=== PATIENT | female | born 1940 | race Caucasian/White ===

== ENCOUNTER 2019-11-21 08:20 | Inpatient (IN) | payer MEDICARE, OTHER ==
[~2019-11-21] VITALS: Ht 160 cm; Wt 81.2 kg
--- NOTE | 2019-11-21 08:40 | NUR ---
patient BIBPA, for medical clearance for gravely disable and danger to self. On room air, breathing evenly and unlabored. sitter at bedside for constant monitoring. Kept comfortable. ambulatory with steady gait. Will continue to monitor accordingly.
--- NOTE | 2019-11-21 08:41 | NUR ---
urine collected and sent to lab
[2019-11-21 08:56] LABS: APPEARANCE,URINE Clear (CLEAR); BILIRUBIN,URINE Negative (NEGATIVE); BLOOD, URINE Large Ery/uL (NEGATIVE); COLOR,URINE Yellow (YELLOW); KETONES,URINE Trace (NEGATIVE); LEUKOCYTE ESTERASE ,URINE Small (NEGATIVE); NITRITE, URINE Negative (NEGATIVE); PROTEIN,URINE 30 mg/dl (NEGATIVE); UGLUCOSE >=1000 mg/dL (NEGATIVE)
[2019-11-21 08:59] LABS: BASOPHILS # (AUTO) 0.1 /CMM (0.0-0.2); BASOPHILS % (AUTO) 0.7 % (0.0-2.0); EOSINOPHILS % (AUTO) 7.1 % (0.0-6.0); HEMATOCRIT 41 % (39-51); HEMOGLOBIN 13.8 g/dL (13.5-17.5); LYMPHOCYTES % (AUTO) 13.9 % (20.0-44.0); MEAN CORPUSCULAR HGB CONC 34 g/dl (31.0-36.0); MEAN CORPUSCULAR VOLUME 89 fL (80-96); MONOCYTES # (AUTO) 0.6 /CMM (0.1-1.30); MONOCYTES % (AUTO) 8.7 % (2.0-12.0); NEUTROPHILS # (AUTO) 5.2 /CMM (1.8-8.9); NEUTROPHILS % (AUTO) 69.6 % (43.0-81.0); PLATELET COUNT (AUTO) 104 /CMM (150-450); RED BLOOD CELL COUNT(AUTO) 4.54 MIL/uL (4.5-6.0); WHITE BLOOD COUNT (AUTO) 7.4 K/uL (4.3-11.0)
[2019-11-21 09:07] LABS: BACTERIA,URINE Moderate /HPF (None Seen); RBC,URINE TOO NUMEROUS TO COUN /HPF (0-2); SQUAMOUS EPITHELIAL CELL,UR Few /HPF (None Seen)
--- NOTE | 2019-11-21 09:30 | NUR ---
glucose 353
[2019-11-21 09:31] LABS: ALANINE AMINOTRANSFERASE 45 U/L (12-78); ALBUMIN 3.2 g/dL (3.4-5.0); ALCOHOL, BLOOD < 3 mg/dL (0-0); ALKALINE PHOSPHATASE 156 U/L (46-116); ASPARTATE AMINOTRANSFERASE 44 U/L (15-37); BILIRUBIN,DIRECT 0.3 mg/dL (0.0-0.2); BILIRUBIN,TOTAL 0.9 mg/dL (0.2-1.0); CALCIUM, SERUM 9.5 mg/dL (8.5-10.1); CARBON DIOXIDE 25 mmol/L (21-32); CHLORIDE 101 mmol/L (98-107); CREATININE 1.4 mg/dL (0.6-1.3); GLUCOSE 353 mg/dL (74-106); POTASSIUM 4.1 mmol/L (3.5-5.1); SODIUM SERUM 135 mmol/L (136-145); TOTAL PROTEIN, SERUM 6.7 g/dL (6.4-8.2); UREA NITROGEN, BLOOD 24 mg/dL (7-18)
[2019-11-21 09:32] LABS: ACETAMINOPHEN 0 ug/ml (10-30); SALICYLATE < 0.2 mg/dL (2.8-20.0)
--- NOTE | 2019-11-21 11:37 | NUR ---
report given to GPS RN for candy.
--- NOTE | 2019-11-21 11:55 | NUR ---
Dr. Neal made aware of the admission and gave orders and he will see pt. tomorrow.
[2019-11-21] MEDS ORDERED: MAG HYDROX/AL HYDROX/SIMETH 30 ML UDC PO PRN (12:00)
[2019-11-21] MEDS ORDERED: ZOLPIDEM TARTRATE 5 MG TABLET PO PRN (12:00)
[2019-11-21] MEDS ORDERED: OMEP40CA13 PO (12:00)
[2019-11-21] MEDS ORDERED: ACETAMINOPHEN 325 MG TABLET PO PRN (12:00)
[2019-11-21] MEDS ORDERED: FURO20TA4 PO (12:00)
[2019-11-21] MEDS ORDERED: FERR325T6 PO (12:00)
[2019-11-21] MEDS ORDERED: AMLO10TA7 PO (12:00)
[2019-11-21] MEDS ORDERED: BLOOD SUGAR DIAGNOSTIC 1 EACH STRIP IN ONE (12:00)
[2019-11-21] MEDS ORDERED: LEVO75TA7 PO (12:00)
[2019-11-21] MEDS ORDERED: ASPI-1152 PO (12:00)
[2019-11-21] MEDS ORDERED: ERGO500014 PO (12:00)
[2019-11-21] MEDS ORDERED: LOSA50TA39 PO (12:00)
[2019-11-21] MEDS ORDERED: POTA10TA48 PO (12:00)
[2019-11-21] MEDS ORDERED: OLAN10TA6 PO (12:00)
[2019-11-21] MEDS ORDERED: MAGNESIUM HYDROXIDE 30 ML UDC PO PRN (12:00)
[2019-11-21] MEDS ORDERED: LORAZEPAM 0.5 MG TABLET PO PRN (12:00)
[2019-11-21] MEDS ORDERED: INSU100V10 SUBCUT (12:04)
--- NOTE | 2019-11-21 12:49 | NUR ---
Called Dr. Sewell's exchange and spoke to Dr. Miranda and was notified about the admission and ordered Accu check with moderate sliding scale and he will see pt. in an hour. Addendum: 11/21/19 at 1602 by KIKO CURRY RN Dr. Miranda said he will do med recon when he comes.
[2019-11-21] MEDS ORDERED: DEXTROSE 50%-WATER 50 ML DISP.SYRIN IV PRN (13:00)
[2019-11-21] MEDS: INSULIN REGULAR, HUMAN 100 UNIT/ML 3 ML VIAL SQ PRN ×2 (14:19→17:30)
--- NOTE | 2019-11-21 15:51 | NUR ---
GPS/RN-NOTES ADMITTED 79 Y.O FEMALE PATIENT FROM [facility] ER, REPORT WAS GIVEN BY ANNITA MADRIGAL.UPON FACE TO FACE ASSESSMENT PATIENT ALERT ORIENTED TO NAME ONLY,CALM AND COOPERATIVE. PATIENT DENIES ANY SI/HI AT THIS TIME.PATIENT HOLD WAS REVIEWED AND WAS VERIFIED WITH THE PATIENT. PATIENT STATED" I DON'T KNOW WHY THEY BRING ME HERE IN THE HOSPITAL,I'M NOT SUICIDAL AT ALL".PATIENT WAS ORIENTED IN THE UNIT AND UNIT POLICIES. PATIENT'S RIGHT WAS REVIEWED AND GIVEN TO THE PATIENT. DR. SHAIKH( PSYCHIATRIST) MADE AWARE WITH ORDERS ALSO AND COVERING FOR DR. MABRY( CAT DRIVER) MADE AWARE AND THAT HE WILL COME SEE THE PATIENT TODAY. 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
[2019-11-21 16:00] VITALS: BP 108/76
[2019-11-21] MEDS: BLOOD SUGAR DIAGNOSTIC 1 EACH STRIP VI SCH ×2 (17:27→21:59)
--- NOTE | 2019-11-21 17:34 | NUR ---
Called Dr. Vega and he reconciled the meds and made aware of the skin rashes and that we put her in a single room and ordered wound consult.
--- NOTE | 2019-11-21 18:18 | NUR ---
GPS/ RN-NOTES UNABLE TO COLLECT URINE SPECIMEN DUE TO PATIENT WAS UNCOOPERATIVE AND REFUSED TO PROVIDE URINE.WILL ENDORSE TO INCOMING SHIFT FOR FOLLOW UP AND CONTINUITY OF CARE. Addendum: 11/21/19 at 1821 by ARMAND MADRID RN DISREGARD MY ABOVE NOTES CHARTED ON WRONG PATIENT.
[2019-11-21] MEDS: FERROUS SULFATE (325 MG) 325 MG/TAB TABLET PO SCH (18:25)
[2019-11-21 21:10] VITALS: BP 134/53
[2019-11-21] MEDS: INSULIN GLARGINE, 100 UNIT/ML CARTRIDGE SQ SCH (21:58)
[2019-11-21] MEDS: *INSULIN REGULAR(HUMULIN R)HUM 100 UNIT/ML VIAL SQ PRN (21:59)
[2019-11-22] MEDS: BLOOD SUGAR DIAGNOSTIC 1 EACH STRIP VI SCH ×4 (07:45→21:32)
[2019-11-22] MEDS: INSULIN REGULAR, HUMAN 100 UNIT/ML 3 ML VIAL SQ PRN ×2 (07:51→18:00)
[2019-11-22] MEDS: FERROUS SULFATE (325 MG) 325 MG/TAB TABLET PO SCH ×3 (07:53→16:44)
[2019-11-22] MEDS: LEVOTHYROXINE SODIUM 75 MCG TABLET PO SCH (07:54)
[2019-11-22] MEDS: PANTOPRAZOLE 40 MG TABLET.DR PO SCH (07:54)
[2019-11-22 08:00] VITALS: BP 135/74
[2019-11-22] MEDS: ASPIRIN EC 81 MG TABLET.DR PO SCH (08:12)
[2019-11-22] MEDS: AMLODIPINE BESYLATE 10 MG TABLET PO SCH (08:14)
[2019-11-22] MEDS: FUROSEMIDE 20 MG TABLET PO SCH (08:14)
[2019-11-22] MEDS: LOSARTAN POTASSIUM 50 MG TABLET PO SCH (08:14)
[2019-11-22] MEDS: ERGOCALCIFEROL (VITAMIN D 2) 50,000 UNIT CAPSULE PO SCH (08:14)
[2019-11-22] MEDS: INSULIN GLARGINE, 100 UNIT/ML CARTRIDGE SQ SCH ×2 (08:21→21:30)
[2019-11-22 09:00] LABS: ALBUMIN 2.9 g/dL (3.4-5.0); BILIRUBIN,TOTAL 0.6 mg/dL (0.2-1.0); CALCIUM, SERUM 9.1 mg/dL (8.5-10.1); TOTAL PROTEIN, SERUM 6.5 g/dL (6.4-8.2)
--- NOTE | 2019-11-22 09:00 | NUR ---
RN NOTE- PATIENT LAYING IN BED AWAKE,ALERT X1,CALM NO ACUTE DISTRESS NOTED.,ALL NEEDS ATTENDED AND ANTICIPATED. PT WITH PRURITIC ERYTHEMATOUS RASH TO ENTIRE BODY. CALLED MD REGARDING. AWAITNG ORDERS. WILL CONT. MONITORING Q15 MINS.FOR SAFETY AND BEHAVIOR
[2019-11-22 09:28] LABS: CHOLESTEROL 213 mg/dL (<200); HDL CHOLESTEROL 51 mg/dL (40-60); TRIGLYCERIDES 120 mg/dL (30-150)
[2019-11-22 09:29] LABS: LDL 138 mg/dL (0-99)
[2019-11-22] MEDS ORDERED: OLAN10TA6 PO (09:57)
[2019-11-22] MEDS ORDERED: POTASSIUM BICARBONATE/CIT AC 25 MEQ TABLET.EFF PO SCH (10:00)
--- NOTE | 2019-11-22 11:09 | NUR ---
RN NOTE- CONTACTED MD REGARDING PRURITC RASH TO BODY. NO NEW ORDERS GIVEN. WILL ATTEMPT AGAIN. THAW SHED HEATER TENDER AWARE.
[2019-11-22] MEDS: OLANZAPINE 5 MG TABLET PO SCH ×2 (11:20→16:44)
[2019-11-22] MEDS: *INSULIN REGULAR(HUMULIN R)HUM 100 UNIT/ML VIAL SQ PRN ×2 (12:00→21:36)
--- NOTE | 2019-11-22 16:09 | NUR ---
RN NOTE- PHONED DR MABRY REGARDING RASH. LEFT MESSAGE. AWAITING ORDERS
[2019-11-22 16:11] VITALS: BP 130/85
--- NOTE | 2019-11-22 16:35 | NUR ---
RN NOTE- SPOKE WITH DR DARIA LEGGETT CALL FOR DR BROOKS
--- NOTE | 2019-11-22 16:36 | NUR ---
RN NOTE- SPOKE WITH DR HUFF -MOLASSES FEED MIXER FOR DR MABRY. HE WILL BE AT UNIT AROUND 1999 TO EVALUATE PT REGARDING RASH.
[2019-11-22 20:11] VITALS: BP 131/59
[2019-11-22] MEDS ORDERED: PERMETHRIN 5% CRM 60 GM TUBE TP ONE (21:30)
--- NOTE | 2019-11-22 21:51 | NUR ---
GPS RN NOTES: DR HUFF CAME A ASSESSED PT SKIN. ORDERED ELIMITE CRM ONCE WITH NO FURTHER ORDERS. ORDERS NOTED. CONTINUE TO MONITOR PT AND SKIN PROGRESS.
[2019-11-23] MEDS: BLOOD SUGAR DIAGNOSTIC 1 EACH STRIP VI SCH ×4 (07:26→21:16)
[2019-11-23 08:00] VITALS: BP 131/60
[2019-11-23] MEDS: ASPIRIN EC 81 MG TABLET.DR PO SCH (08:03)
[2019-11-23] MEDS: PANTOPRAZOLE 40 MG TABLET.DR PO SCH (08:03)
[2019-11-23] MEDS: LEVOTHYROXINE SODIUM 75 MCG TABLET PO SCH (08:03)
[2019-11-23] MEDS: OLANZAPINE 5 MG TABLET PO SCH ×2 (08:04→16:46)
[2019-11-23] MEDS: FUROSEMIDE 20 MG TABLET PO SCH (08:04)
[2019-11-23] MEDS: LOSARTAN POTASSIUM 50 MG TABLET PO SCH (08:04)
[2019-11-23] MEDS: FERROUS SULFATE (325 MG) 325 MG/TAB TABLET PO SCH ×3 (08:04→16:45)
[2019-11-23] MEDS: POTASSIUM CITRATE 5 MEQ TABLET.SA PO SCH (08:04)
[2019-11-23] MEDS: AMLODIPINE BESYLATE 10 MG TABLET PO SCH (08:04)
[2019-11-23] MEDS: INSULIN GLARGINE, 100 UNIT/ML CARTRIDGE SQ SCH ×2 (08:05→21:30)
[2019-11-23] MEDS: INSULIN REGULAR, HUMAN 100 UNIT/ML 3 ML VIAL SQ PRN ×3 (08:16→17:24)
--- NOTE | 2019-11-23 09:19 | NUR ---
GPS RN: OPENING NOTE: PATIENT LYING IN BED AWAKE, AOX1, POLITE, CALM AND COOPERATIVE. COMPLIANT WITH MEDICATION ADMINISTRATION. DENIES PAIN AND ITCHING AFTER APPLICATION OF ELMITE CREAM. SHOWER TODAY AROUND [id number]. NO SIGNS OF ACUTE DISTRESS. DENIES SI/HI AND VAH. REPORTS FEELING RESTED AND SLEEPING WELL. ALL NEEDS ATTENDED TO. SAFETY PRECAUTIONS OBSERVED. WILL CONTINUE TO MONITOR Q15 FOR MOOD, SAFETY AND BEHAVIOR.
--- NOTE | 2019-11-23 12:05 | NUR ---
FACILITY CONTACT: SW contacted [facility] Address: [address], [place] [address] and spoke with Chani, front desk administrator who stated pt is able to return once stable for discharge.
--- NOTE | 2019-11-23 14:57 | NUR ---
INITIAL DISCHARGE PLAN: Patient will return to [facility] Address: [address], [place] [address] . MARYAM spoke with Chani, senior storage administrator who stated pt is able to return once stable for discharge. MARYAM will help form a safe and proper discharge in collaboration with .
[2019-11-23 16:35] VITALS: BP 137/70
--- NOTE | 2019-11-23 16:38 | NUR ---
GPS OVERFLOW NOTES PT MOVED TO UNIT RM 201 FROM RM 217 VIA WHEELCHAIR AT 1630 ACCOMPANIED BY NURSE BOONE CHRISTIE. PT IS A/O X3, SAME VERBALLY RESPONSIVE. V/S CHECKED; BP 132/62, P 67, R 18, T 98.5F AND 100% SP02 ON ROOM AIR. PT WITH NO IV ACCESS. SKIN NOTED WITH GENERALIZED RASHES AND REDNESS ON GROIN. SAFETY MEASURES INITIATED: BED PLACED IN LOWEST LOCKED POSITION WITH SR UP X2, CALL LIGHT WITHIN REACH. WILL CONTINUE TO MONITOR PT ACCORDINGLY.
--- NOTE | 2019-11-23 18:38 | NUR ---
GPS OVERFLOW NOTES PT IN BED AWAKE AND WATCHING TV AT THIS TIME. HOB ELEVATED. A/O X3. ABLE TO MAKE NEEDS KNOWN. PT WITH GENERALIZED RASHES, CONTACT PRECAUTIONS MAINTAINED TO R/O SCABIES. ON ROOM AIR , TOLERATING WELL WITH NO SOB NOTED. NO IV ACCESS NOTED. SAFETY MEASURES INITIATED: BED PLACED IN LOWEST LOCKED POSITION WITH SR UP X2, CALL LIGHT WITHIN REACH. ALL NEEDS AND CARE ATTENDED WELL. WILL ENDORSE TO COMMUNICATIONS SYSTEMS ENGINEER NURSE FOR KIRILL.
--- NOTE | 2019-11-23 19:15 | NUR ---
GPS PM RN OVERFLOW OPENING NOTES BEDSIDE REPORT RECIEVED FROM VITALIY MADRIGAL. PT IN BED AWAKE AND WATCHING TV. HOB ELEVATED. A/O X3. ABLE TO MAKE NEEDS KNOWN. HAS RASHES ALL OVER BODY AND CONTACT PRECAUTIONS MAINTAINED TO R/O SCABIES. ON ROOM AIR , TOLERATING WELL WITH NO APPARENT SOB RESP EVEN AND UNLABORED. PT HAS NO IV ACCESS. SAFETY MEASURES IN PLACE; BED IN LOW LOCKED POSITION WITH SR UP X2, CALL LIGHT WITHIN REACH. WILL CONT TO MONITOR.
[2019-11-23 20:26] VITALS: BP 115/68
[2019-11-23] MEDS: *INSULIN REGULAR(HUMULIN R)HUM 100 UNIT/ML VIAL SQ PRN (21:30)
[2019-11-24] MEDS: INSULIN REGULAR, HUMAN 100 UNIT/ML 3 ML VIAL SQ PRN ×3 (06:37→21:08)
[2019-11-24] MEDS: BLOOD SUGAR DIAGNOSTIC 1 EACH STRIP VI SCH ×4 (07:18→21:22)
--- NOTE | 2019-11-24 07:18 | NUR ---
RN GPS OVERFLOW PM CLOSING NOTES PT IN BED AWAKE AND WATCHING TV. HOB ELEVATED. A/O X3. ABLE TO MAKE NEEDS KNOWN. HAS RASHES ALL OVER BODY AND CONTACT PRECAUTIONS MAINTAINED TO R/O SCABIES. ON ROOM AIR , TOLERATING WELL WITH NO APPARENT SOB RESP EVEN AND UNLABORED. PT HAS NO IV ACCESS. SAFETY MEASURES IN PLACE; BED IN LOW LOCKED POSITION WITH SR UP X2, CALL LIGHT WITHIN REACH. BS CHECKED 198 GIVEN 3 UNITS REGULAR INSULIN COVERAGE.
[2019-11-24 08:00] VITALS: BP 135/66
--- NOTE | 2019-11-24 08:00 | NUR ---
RN GPS NOTES PT IN BED, AWAKE, ALERT AND ORIENTED, DENIES PAIN, NOT IN DISTRESS, CALL LIGHT WITHIN REACH, KEPT WARM AND COMFORTABLE IN BED. ISOLATION PRECAUTIONS OBSERVED, DENIES ITCHINESS AT THIS TIME.
--- NOTE | 2019-11-24 09:12 | NUR ---
WOUND CARE CONSULT: PT PRESENTS WITH RASH TO ABDOMINAL/GROIN FOLDS AND GLUTEAL CREASE/PERINEAL AREAS, PRESENT ON ADMISSION. PT ALSO HAS MULTIPLE DRY SCABS AND SCRATCH GUILLERMO MOSTLY ON EXTREMITIES, PRESENT ON ADMISSION. PER NURSING STAFF, PT WAS TREATED WITH ELIMITE. RECOMMENDATIONS MADE FOR SKIN PROTECTION AND SKIN CARE. DISCUSSED WITH NURSING STAFF. WILL SEE PRN. WILDE IN AGREEMENT WITH PLAN OF CARE. Addendum: 11/24/19 at 0915 by TOBI KENNEDY WNDNU Amended: Links added.
[2019-11-24] MEDS: PANTOPRAZOLE 40 MG TABLET.DR PO SCH (09:17)
[2019-11-24] MEDS: FERROUS SULFATE (325 MG) 325 MG/TAB TABLET PO SCH ×3 (09:17→17:47)
[2019-11-24] MEDS: LEVOTHYROXINE SODIUM 75 MCG TABLET PO SCH (09:17)
[2019-11-24] MEDS: OLANZAPINE 5 MG TABLET PO SCH ×2 (09:17→17:47)
[2019-11-24] MEDS: ASPIRIN EC 81 MG TABLET.DR PO SCH (09:17)
[2019-11-24] MEDS: LOSARTAN POTASSIUM 50 MG TABLET PO SCH (09:17)
[2019-11-24] MEDS: FUROSEMIDE 20 MG TABLET PO SCH (09:17)
[2019-11-24] MEDS: POTASSIUM CITRATE 5 MEQ TABLET.SA PO SCH (09:18)
[2019-11-24] MEDS: AMLODIPINE BESYLATE 10 MG TABLET PO SCH (09:18)
[2019-11-24] MEDS: INSULIN GLARGINE, 100 UNIT/ML CARTRIDGE SQ SCH ×2 (09:21→20:53)
[2019-11-24] MEDS ORDERED: Z GUARD REMEDY 2 OZ OINT TP PRN (09:30)
[2019-11-24] MEDS: Z GUARD REMEDY 2 OZ OINT TP SCH (11:30)
--- NOTE | 2019-11-24 12:49 | NUR ---
RN GPS NOTES PT IN BED, RESTING, NO BEHAVIOR PROBLEM, DENIES SI, COMPLIANT WITH MEDS AND INTERVENTIONS, KEPT ON ISOLATION PRECAUTIONS.
[2019-11-24 16:00] VITALS: BP 101/54
[2019-11-24] MEDS: CLOTRIMAZOLE 1% 15 GM TUBE TP SCH (17:48)
--- NOTE | 2019-11-24 18:34 | NUR ---
RN GPS NOTES PT IN BED, AWAKE, ALERT AND ORIENTED, NO COMPLAINT OF PAIN OR ANY DISCOMFORT, NO BEHAVIOR PROBLEM NOTED, TOLERATING CURRENT DIET, ALL NEEDS ATTENDED.
--- NOTE | 2019-11-24 19:00 | NUR ---
RN OPENING NOTES: RECEIVED PT ON ROOM AIR AND IS TOLERATING. WELL. NO SOB NOTED. NO S/S OF DISTRESS. PT IS A/OX2. PT APPEARS TO BE CONFUSED. PT HAS NO IV. PT HAS NO SI. BED KEPT IN LOW, LOCKED POSITION, AND SIDE RAILS X 2UP. CALL LIGHT WITHIN REACH. INSTRUCTED PT HOW TO USE CALL LIGHT. CONTACT ISOLATION PRECAUTIONS MAINTAINED. WILL CONTINUE TO MONITOR PT.
[2019-11-24 20:00] VITALS: BP 98/53
--- NOTE | 2019-11-24 21:11 | NUR ---
RN NOTES: BLOOD SUGAR WAS 149. 2 UNITS OF REGULAR INSULIN WAS ADMINISTERED. SNACK PROVIDED TO PT. ALSO, 30 UNITS OF LANTUS WAS ADMINISTERED. SNACK PROVIDED TO PT WELL.
[2019-11-25] MEDS: INSULIN REGULAR, HUMAN 100 UNIT/ML 3 ML VIAL SQ PRN ×3 (06:23→17:11)
[2019-11-25] MEDS: BLOOD SUGAR DIAGNOSTIC 1 EACH STRIP VI SCH ×4 (06:34→21:24)
--- NOTE | 2019-11-25 06:36 | NUR ---
RN NOTES: BLOOD SUGAR THIS AM WAS 145. 2 UNITS OF INSULIN WAS ADMINISTERED. PT PROVIDED APPLE SAUCE HER CHOICE OF SNACK. WILL ENDORSE TO AM NURSE FOR KIRILL.
--- NOTE | 2019-11-25 07:30 | NUR ---
RN MS NOTES PT IN BED, AWAKE, ALERT AND ORIENTED, WATCHING TV, DENIES PAIN, NOT IN DISTRESS, RESPIRATIONS NORMAL, NO BEHAVIOR PROBLEM NOTED, CALM AND COOPERATIVE WITH CARE, CALL LIGHT WITHIN REACH, ISOLATION PRECAUTIONS OBSERVED.
[2019-11-25 08:00] VITALS: BP 133/60
[2019-11-25] MEDS: FUROSEMIDE 20 MG TABLET PO SCH (08:42)
[2019-11-25] MEDS: LEVOTHYROXINE SODIUM 75 MCG TABLET PO SCH (08:42)
[2019-11-25] MEDS: FERROUS SULFATE (325 MG) 325 MG/TAB TABLET PO SCH ×3 (08:42→16:10)
[2019-11-25] MEDS: OLANZAPINE 5 MG TABLET PO SCH ×2 (08:42→16:10)
[2019-11-25] MEDS: ASPIRIN EC 81 MG TABLET.DR PO SCH (08:43)
[2019-11-25] MEDS: POTASSIUM CITRATE 5 MEQ TABLET.SA PO SCH (08:43)
[2019-11-25] MEDS: AMLODIPINE BESYLATE 10 MG TABLET PO SCH (08:43)
[2019-11-25] MEDS: PANTOPRAZOLE 40 MG TABLET.DR PO SCH (08:43)
[2019-11-25] MEDS: LOSARTAN POTASSIUM 50 MG TABLET PO SCH (08:43)
[2019-11-25] MEDS: INSULIN GLARGINE, 100 UNIT/ML CARTRIDGE SQ SCH ×2 (08:52→21:26)
[2019-11-25] MEDS: Z GUARD REMEDY 2 OZ OINT TP SCH (09:47)
[2019-11-25] MEDS: CLOTRIMAZOLE 1% 15 GM TUBE TP SCH ×2 (09:47→16:14)
--- NOTE | 2019-11-25 13:11 | NUR ---
RN GPS NOTES PT IN BED, RESTING, AWAKE, ALERT AND ORIENTED, NO COMPLAINT AT THIS TIME, BREATHING PATTERN NORMAL, COMPLIANT WITH MEDS, NO BEHAVIOR PROBLEM NOTED.
[2019-11-25 16:00] VITALS: BP 102/45
--- NOTE | 2019-11-25 18:14 | NUR ---
RN GPS NOTES PT IN BED, AWAKE, ALERT AND ORIENTED, NO COMPLAINT OF PAIN OR ANY DISCOMFORT, EATING DINNER, COMPLIANT WITH MEDS AND INTERVENTIONS, TOLERATES CURRENT DIET, SEEN BY DR. RYAN TODAY, PLAN OF CARE DISCUSSED WITH PT, VERBALIZED UNDERSTANDING.
--- NOTE | 2019-11-25 19:25 | NUR ---
RN OPENING NOTES RECEIVED PATIENT AWAKE IN BED. A/OX2. NO SIGNS OF DISTRESS OR DISCOMFORT. BREATHING EVEN AND UNLABORED. HAS NO IV ACCESS. DENIES SI/HI AT THIS TIME. BED IN LOW LOCKED POSITION WITH SIDE RAILS X2. CALL LIGHT WITHIN REACH. WILL CONTINUE TO MONITOR.
[2019-11-25 20:00] VITALS: BP 119/55
[2019-11-25] MEDS: *INSULIN REGULAR(HUMULIN R)HUM 100 UNIT/ML VIAL SQ PRN (21:28)
[2019-11-26] MEDS: BLOOD SUGAR DIAGNOSTIC 1 EACH STRIP VI SCH ×4 (06:37→22:37)
[2019-11-26] MEDS: INSULIN REGULAR, HUMAN 100 UNIT/ML 3 ML VIAL SQ PRN ×2 (06:38→11:48)
--- NOTE | 2019-11-26 07:02 | NUR ---
RN CLOSING NOTES PATIENT AWAKE IN BED. A/OX2. NO SIGNS OF DISTRESS OR DISCOMFORT. BREATHING EVEN AND UNLABORED. HAS NO IV ACCESS. DENIES SI/HI AT THIS TIME. ALL NEEDS MET. NO SIGNIFICANT CHANGES THROUGH THE NIGHT. HAD APPROX 3 HRS OF SLEEP. BED IN LOW LOCKED POSITION WITH SIDE RAILS X2. CALL LIGHT WITHIN REACH. WILL ENDORSE TO AM SHIFT FOR KIRILL.
[2019-11-26 08:00] VITALS: BP 137/81
[2019-11-26] MEDS: PANTOPRAZOLE 40 MG TABLET.DR PO SCH (08:19)
[2019-11-26] MEDS: LEVOTHYROXINE SODIUM 75 MCG TABLET PO SCH (08:19)
[2019-11-26] MEDS: ASPIRIN EC 81 MG TABLET.DR PO SCH (08:19)
[2019-11-26] MEDS: FUROSEMIDE 20 MG TABLET PO SCH (08:19)
[2019-11-26] MEDS: OLANZAPINE 5 MG TABLET PO SCH ×2 (08:19→16:39)
[2019-11-26] MEDS: FERROUS SULFATE (325 MG) 325 MG/TAB TABLET PO SCH ×3 (08:19→16:39)
[2019-11-26] MEDS: AMLODIPINE BESYLATE 10 MG TABLET PO SCH (08:20)
[2019-11-26] MEDS: LOSARTAN POTASSIUM 50 MG TABLET PO SCH (08:20)
[2019-11-26] MEDS: Z GUARD REMEDY 2 OZ OINT TP SCH (08:21)
[2019-11-26] MEDS: POTASSIUM CITRATE 5 MEQ TABLET.SA PO SCH (08:21)
[2019-11-26] MEDS: INSULIN GLARGINE, 100 UNIT/ML CARTRIDGE SQ SCH ×2 (08:23→22:40)
[2019-11-26] MEDS: CLOTRIMAZOLE 1% 15 GM TUBE TP SCH ×2 (08:24→16:40)
--- NOTE | 2019-11-26 11:23 | NUR ---
MS RN NOTES-- PT SEEN AND EXAMINED BY DR. SHAIKH.
--- NOTE | 2019-11-26 18:18 | NUR ---
MS MADRIGAL END OF SHIFT SUMMARY PT REMAINS DROWSY. AROUSABLE TO TOUCH AND NAME. AFEBRILE, RESPIRATIONS ARE EVEN AND UNLABORED, NOT IN ANY ACUTE DISTRESS NOTED. NO FACIAL GRIMACING OR MOANING. PT WAS SEEN BY DR. DALTON AND DECREASED SEROQUEL DOSAGE. PT WAS ALSO SEEN BY DR. RALPH, AWAITING LIFE VEST. TURN AND REPOSITIONED Q1H, WITH SOFT RESTRAINTS TO RIGHT WRIST, CHECKED FOR SKIN AND CIRCULATION. PT ABLE TO TOLERATE PO W/ NO N/V, STILL AT RISK FOR ASPIRATION. ALL NEEDS MET AND RENDERED. SAFETY MEASURES ARE IN PLACE. WILL MONITOR AND CONTINUE POC. Addendum: 11/26/19 at 1828 by GATO SHOEMAKER RN INCORRECT PATIENT.
--- NOTE | 2019-11-26 18:29 | NUR ---
MS RN END OF SHIFT SUMMARY PT REMAINS A/O X3, AFEBRILE. RESPIRATIONS ARE EVEN AND UNLABORED, NOT IN ANY ACUTE DISTRESS NOTED. PT DENIES ANY PAIN DURING SHIFT, NO C/O SOB, N/V. +FLATUS, BM X1. ABLE TO VOID ADEQUATE UOP, AMBULATES TO BATHROOM WITH STANDBY ASSIST. ON ISOLATION FOR R/O SCABIES, ISOLATION PRECAUTIONS TAKEN. ALL NEEDS MET AND RENDERED. SAFETY MEASURES ARE IN PLACE. WILL MONITOR AND CONTINUE POC.
--- NOTE | 2019-11-26 19:30 | NUR ---
MS RN OPENING NOTE RECEIVED THE PATIENT GPS OVERFLOW. PATIENT ON ISOLATION FOR R/O SCABIES. PATIENT RECEIVED IN BED. A/OX3. TOLERATING ROOM AIR. RESPIRATIONS ARE EVEN AND UNLABORED. NO S/S SOB NOTED. DENIES PAIN AT THIS TIME. IN NO APPARENT DISTRESS. NO IV ACCESS NOTED. BED IS LOW AND LOCKED, HOB ELEVATED, SIDE RAILS UP X2, CALL LIGHT WITHIN REACH. WILL CONTINUE TO MONITOR.
[2019-11-26 20:00] VITALS: BP 101/56
[2019-11-26 20:06] VITALS: BP 101/56
[2019-11-26] MEDS: *INSULIN REGULAR(HUMULIN R)HUM 100 UNIT/ML VIAL SQ PRN (22:41)
[2019-11-27] MEDS: BLOOD SUGAR DIAGNOSTIC 1 EACH STRIP VI SCH ×4 (06:22→21:48)
--- NOTE | 2019-11-27 06:27 | NUR ---
MS RN CLOSING NOTE PATIENT REMAINS GPS OVERFLOW. PATIENT REMAINS ON ISOLATION FOR R/O SCABIES. PATIENT IN BED. A/OX3. TOLERATING ROOM AIR. RESPIRATIONS ARE EVEN AND UNLABORED. NO SOB NOTED. NO C/O PAIN THROUGHOUT SHIFT. NO DISTRESS NOTED.REMAINS WITH NO IV ACCESS. NO SI/HI NOTED. BED REMAINS LOW AND LOCKED, HOB ELEVATED, SIDE RAILS UP X2, CALL LIGHT WITHIN REACH. WILL ENDORSE TO NEXT SHIFT.
--- NOTE | 2019-11-27 07:10 | NUR ---
RN OPENING NOTES: GPS OVERFLOW RECEIVED THE PATIENT IN BED RESTING. PATIENT ON ISOLATION FOR R/O SCABIES. A/OX3. TOLERATING ROOM AIR. RESPIRATIONS ARE EVEN AND UNLABORED. NO SOB NOTED. DENIES PAIN AT THIS TIME. IN NO APPARENT DISTRESS. NO IV ACCESS NOTED. DENIED SI/HI. BED IN LOW AND LOCKED POSITION, HOB ELEVATED, SIDE RAILS UP X2, CALL LIGHT WITHIN REACH. WILL CONTINUE TO MONITOR ACCORDINGLY.
[2019-11-27 07:30] VITALS: BP 127/57
[2019-11-27] MEDS ORDERED: IVERMECTIN 3 MG TABLET PO ONE ×2 (08:30→09:00)
[2019-11-27] MEDS: OLANZAPINE 5 MG TABLET PO SCH ×2 (08:42→16:12)
[2019-11-27] MEDS: LOSARTAN POTASSIUM 50 MG TABLET PO SCH (08:42)
[2019-11-27] MEDS: AMLODIPINE BESYLATE 10 MG TABLET PO SCH (08:42)
[2019-11-27] MEDS: FUROSEMIDE 20 MG TABLET PO SCH (08:42)
[2019-11-27] MEDS: POTASSIUM CITRATE 5 MEQ TABLET.SA PO SCH (08:43)
[2019-11-27] MEDS: LEVOTHYROXINE SODIUM 75 MCG TABLET PO SCH (08:46)
[2019-11-27] MEDS: PANTOPRAZOLE 40 MG TABLET.DR PO SCH (08:46)
[2019-11-27] MEDS: Z GUARD REMEDY 2 OZ OINT TP SCH (09:01)
[2019-11-27] MEDS: INSULIN GLARGINE, 100 UNIT/ML CARTRIDGE SQ SCH ×3 (09:02→23:19)
[2019-11-27] MEDS: METFORMIN 500 MG TABLET PO SCH (09:03)
[2019-11-27] MEDS: CLOTRIMAZOLE 1% 15 GM TUBE TP SCH ×2 (09:09→16:13)
--- NOTE | 2019-11-27 15:18 | NUR ---
GROUP NOTE: Pt was present in group on this day discussing "discharge plan." Pt was sitting in group but was unable to participate due to cognitive impairment. Pt unable to engage in group topic.
[2019-11-27 16:00] VITALS: BP 131/63
--- NOTE | 2019-11-27 19:13 | NUR ---
RN CLOSING NOTES PATIENT IN STABLE CONDITION. ALL NEEDS ATTENDED AND PROVIDED. ALL DUE MEDICATIONS GIVEN ORDERED. DENIED SI/HI. KEPT PATIENT SAFE AND COMFORTABLE. BED IN LOW/LOCKED POSITION, SIDERAILS UPX2, CALL LIGHT IN REACH. ENDORSED ACCORDINGLY.
--- NOTE | 2019-11-27 19:21 | NUR ---
RN medsurg opening notes: GPS overflow Received Pt from morning nurse. Pt is resting in bed comfortably in bed. Pt is alert and orientedX3. Respiration is normal. No SOB. No S/S of distress noted. Pt does not have IV access. Pt denies SI/HI at this time. Reality orientation provided. Contact precautions is maintained R/O scabies. Safety precautions is maintained. Bed at low position, brakes locked, side rails upX3 and call light is within reach. Will continue to monitor.
[2019-11-27 20:00] VITALS: BP 106/50
[2019-11-27] MEDS: ATORVASTATIN 10 MG TABLET PO SCH (21:40)
[2019-11-27] MEDS: *INSULIN REGULAR(HUMULIN R)HUM 100 UNIT/ML VIAL SQ PRN (21:47)
--- NOTE | 2019-11-27 22:59 | NUR ---
RN medsurg notes Pt's med lantus is not enough to administered. Informed and called soda dry house operator Selinarik about the med lantus. Awaiting for lantus from soda dry house operator.
[2019-11-27] MEDS ORDERED: INSULIN GLARGINE, 100 UNIT/ML CARTRIDGE SQ ONE (23:13)
--- NOTE | 2019-11-27 23:19 | NUR ---
RN medsurg notes Received new lantus from [employer]. Unable to scan the medication and had to put manual barcode. Charge nurse is aware and informed.
--- NOTE | 2019-11-28 06:40 | NUR ---
RN medsur notes Pt's BS 94. No coverage given per sliding scale. Will continue to monitor
[2019-11-28] MEDS: BLOOD SUGAR DIAGNOSTIC 1 EACH STRIP VI SCH ×4 (06:42→21:36)
--- NOTE | 2019-11-28 06:48 | NUR ---
RN medsurg closing notes Pt is resting in bed comfortably. Respiration is normal. No SOB. No S/S of distress noted. VS is stable. Pt denies SI/HI at this time. Kept Pt clean, dry and comfortable. Routine meds were given as ordered. All needs met and attended. Contact precautions is maintained. Safety precautions is maintained. Bed at low position, brakes locked, side rails upX2 and call light is within reach. Will endorse to morning nurse for KIRILL.
[2019-11-28 08:00] VITALS: BP 109/42
--- NOTE | 2019-11-28 08:00 | NUR ---
MS RN OPENING NOTES Received Patient awake and resting in bed. A/O x 2-3. VS stable with no acute distress. Breathing even and unlabored on room air with no respiratory distress. Denies pain. No signs and symptoms of pain. Isolation precautions in place. Safety precautions in place. Bed locked and set to lowest position with side rails x 2 up. All needs rendered at this time. Call light within reach. Will continue to monitor.
[2019-11-28] MEDS: AMLODIPINE BESYLATE 10 MG TABLET PO SCH (09:00)
[2019-11-28] MEDS: LOSARTAN POTASSIUM 50 MG TABLET PO SCH (09:00)
[2019-11-28] MEDS: LEVOTHYROXINE SODIUM 75 MCG TABLET PO SCH (09:03)
[2019-11-28] MEDS: PANTOPRAZOLE 40 MG TABLET.DR PO SCH (09:03)
[2019-11-28] MEDS: METFORMIN 500 MG TABLET PO SCH (09:05)
[2019-11-28] MEDS: FUROSEMIDE 20 MG TABLET PO SCH (09:05)
[2019-11-28] MEDS: OLANZAPINE 5 MG TABLET PO SCH ×2 (09:06→17:05)
[2019-11-28] MEDS: POTASSIUM CITRATE 5 MEQ TABLET.SA PO SCH (09:06)
[2019-11-28] MEDS: INSULIN GLARGINE, 100 UNIT/ML CARTRIDGE SQ SCH ×2 (09:08→21:39)
[2019-11-28] MEDS: Z GUARD REMEDY 2 OZ OINT TP SCH (09:09)
[2019-11-28] MEDS: CLOTRIMAZOLE 1% 15 GM TUBE TP SCH ×2 (09:10→17:06)
[2019-11-28 16:00] VITALS: BP 122/55
[2019-11-28] MEDS: FLUOCINONIDE 0.05% CREAM 60 GM TUBE TP SCH (17:05)
--- NOTE | 2019-11-28 19:12 | NUR ---
MS RN CLOSING NOTES Patient awake and resting in bed. A/O x 2-3. VS stable with no acute distress. Breathing even and unlabored on room air with no respiratory distress. Denies pain. No signs and symptoms of pain. Isolation precautions in place. Safety precautions in place. Bed locked and set to lowest position with side rails x 2 up. All needs rendered at this time. Call light within reach. Will endorse plan of care to oncoming shift.
--- NOTE | 2019-11-28 19:20 | NUR ---
M/S RN NOTES PATIENT AWAKE RESTING IN BED, NO RESPIRATORY DISTRES, NO C/O PAIN AT THIS TIME. SAFETY PRECAUTIONS MAINTAINED. SKIN WARM TO TOUCH. NO IV ACCESS SITE. PATIENT'S NEEDS ATTENDED, BED ON LOWEST LOCKED POSITION, CALL LIGHT WITHIN REACH. WILL ENDORSE TO ONCOMING NURSE.
[2019-11-28] MEDS: ATORVASTATIN 10 MG TABLET PO SCH (21:43)
[2019-11-28] MEDS: *INSULIN REGULAR(HUMULIN R)HUM 100 UNIT/ML VIAL SQ PRN (21:43)
--- NOTE | 2019-11-29 06:35 | NUR ---
M/S RN NOTES PATIENT RESTING IN BED, NO RESPIRATORY DISTRES, NO C/O PAIN AT THIS TIME. SKIN WARM TO TOUCH. PATIENT'S NEEDS ATTENDED, BED ON LOWEST LOCKED POSITION, CALL LIGHT WITHIN REACH. WILL ENDORSE TO ONCOMING NURSE.
--- NOTE | 2019-11-29 07:36 | NUR ---
MS/RN OPENING NOTE Patient is resting in bed, A/O x2-3, showing no signs of acute distress or SOB, saturating 100% on RA. Patient has no complaints of pain at this time, no complaints of itchiness. Patient has no IV access. Bed is in lowest position, side rails x3 in upright position, call light is within reach and patient is aware of how to call for assistance when needed. Will continue with plan of care.
[2019-11-29 08:00] VITALS: BP 124/60
[2019-11-29] MEDS: FUROSEMIDE 20 MG TABLET PO SCH (08:10)
[2019-11-29] MEDS: PANTOPRAZOLE 40 MG TABLET.DR PO SCH (08:10)
[2019-11-29] MEDS: OLANZAPINE 5 MG TABLET PO SCH ×2 (08:10→17:01)
[2019-11-29] MEDS: AMLODIPINE BESYLATE 10 MG TABLET PO SCH (08:10)
[2019-11-29] MEDS: LOSARTAN POTASSIUM 50 MG TABLET PO SCH (08:10)
[2019-11-29] MEDS: LEVOTHYROXINE SODIUM 75 MCG TABLET PO SCH (08:11)
[2019-11-29] MEDS: POTASSIUM CITRATE 5 MEQ TABLET.SA PO SCH (08:11)
[2019-11-29] MEDS: ERGOCALCIFEROL (VITAMIN D 2) 50,000 UNIT CAPSULE PO SCH (08:11)
[2019-11-29] MEDS: BLOOD SUGAR DIAGNOSTIC 1 EACH STRIP VI SCH ×4 (08:12→21:42)
[2019-11-29] MEDS: METFORMIN 500 MG TABLET PO SCH (08:14)
[2019-11-29] MEDS: INSULIN GLARGINE, 100 UNIT/ML CARTRIDGE SQ SCH ×2 (08:15→21:42)
[2019-11-29] MEDS: Z GUARD REMEDY 2 OZ OINT TP SCH (08:15)
[2019-11-29] MEDS: FLUOCINONIDE 0.05% CREAM 60 GM TUBE TP SCH ×2 (09:00→17:00)
[2019-11-29] MEDS: CLOTRIMAZOLE 1% 15 GM TUBE TP SCH ×2 (09:00→17:01)
[2019-11-29] MEDS ORDERED: PERMETHRIN 5% CRM 60 GM TUBE TP ONE (10:00)
[2019-11-29] MEDS: INSULIN REGULAR, HUMAN 100 UNIT/ML 3 ML VIAL SQ PRN (12:10)
--- NOTE | 2019-11-29 12:12 | NUR ---
MS/RN NOTE no insulin coverage per protocol
[2019-11-29 16:53] VITALS: BP 109/52
--- NOTE | 2019-11-29 17:30 | NUR ---
MS/RN NOTE Dr. Sewell came to visit patient today. I asked him if he was going to do a scraping to R/O scabies, he stated, "Yes I was going to, however it is too late for it now. She has been treated with the Elimite." Patient remains stable, resting comfortably in bed.
[2019-11-29] MEDS: *INSULIN REGULAR(HUMULIN R)HUM 100 UNIT/ML VIAL SQ PRN ×2 (17:34→21:39)
--- NOTE | 2019-11-29 19:23 | NUR ---
MS/RN CLOSING NOTE Patient is resting in bed, A/O x2-3, showing no signs of acute distress or SOB, saturating 100% on RA. Patient stated after putting Elimite, itchiness subsided. Patient has no IV access. Bed is in lowest position, side rails x3 in upright position, call light is within reach and patient is aware of how to call for assistance when needed. Will endorse to night shift manager.
--- NOTE | 2019-11-29 19:35 | NUR ---
RN OPENING NOTES RECEIVED PATIENT AWAKE IN BED. A/OX2-3. NO SIGNS OF DISTRESS OR DISCOMFORT. BREATHING EVEN AND UNLABORED. HAS NO IV ACCESS. DENIES SI/HI AT THIS TIME. BED IN LOW LOCKED POSITION WITH SIDE RAILS X2. CALL LIGHT WITHIN REACH. WILL CONTINUE TO MONITOR.
[2019-11-29 20:03] VITALS: BP 108/48
[2019-11-29] MEDS: ATORVASTATIN 10 MG TABLET PO SCH (21:34)
[2019-11-30] MEDS: BLOOD SUGAR DIAGNOSTIC 1 EACH STRIP VI SCH ×4 (06:39→21:49)
[2019-11-30] MEDS: INSULIN REGULAR, HUMAN 100 UNIT/ML 3 ML VIAL SQ PRN (06:40)
--- NOTE | 2019-11-30 06:56 | NUR ---
RN CLOSING NOTES PATIENT AWAKE IN BED. A/OX2. NO SIGNS OF DISTRESS OR DISCOMFORT. BREATHING EVEN AND UNLABORED. HAS NO IV ACCESS. DENIES SI/HI AT THIS TIME. ALL NEEDS MET. NO SIGNIFICANT CHANGES THROUGH THE NIGHT. BED IN LOW LOCKED POSITION WITH SIDE RAILS X2. CALL LIGHT WITHIN REACH. WILL ENDORSE TO AM SHIFT FOR KIRILL.
[2019-11-30] MEDS: PANTOPRAZOLE 40 MG TABLET.DR PO SCH (08:21)
[2019-11-30] MEDS: AMLODIPINE BESYLATE 10 MG TABLET PO SCH (08:22)
[2019-11-30] MEDS: OLANZAPINE 5 MG TABLET PO SCH ×2 (08:22→16:24)
[2019-11-30] MEDS: LEVOTHYROXINE SODIUM 75 MCG TABLET PO SCH (08:22)
[2019-11-30] MEDS: FUROSEMIDE 20 MG TABLET PO SCH (08:22)
[2019-11-30] MEDS: LOSARTAN POTASSIUM 50 MG TABLET PO SCH (08:22)
[2019-11-30] MEDS: METFORMIN 500 MG TABLET PO SCH (08:22)
[2019-11-30] MEDS: POTASSIUM CITRATE 5 MEQ TABLET.SA PO SCH (08:30)
[2019-11-30] MEDS: CLOTRIMAZOLE 1% 15 GM TUBE TP SCH ×2 (08:30→16:24)
[2019-11-30] MEDS: FLUOCINONIDE 0.05% CREAM 60 GM TUBE TP SCH ×2 (08:39→16:25)
[2019-11-30] MEDS: Z GUARD REMEDY 2 OZ OINT TP SCH (08:39)
[2019-11-30] MEDS: INSULIN GLARGINE, 100 UNIT/ML CARTRIDGE SQ SCH ×2 (08:40→21:48)
[2019-11-30 09:09] VITALS: BP 126/56
[2019-11-30 16:54] VITALS: BP 108/73
--- NOTE | 2019-11-30 18:39 | NUR ---
MS RN CLOSING NOTES Patient asleep and resting in bed. A/O x 3. VS stable with no acute distress. Breathing even and unlabored on room air with no respiratory distress. Denies pain. No signs and symptoms of pain. Isolation precautions in place. Safety precautions in place. Bed locked and set to lowest position with side rails x 2 up. All needs rendered at this time. Call light within reach. Will endorse plan of care to oncoming shift.
[2019-11-30 20:00] VITALS: BP 138/55
[2019-11-30 20:05] VITALS: BP 138/55
--- NOTE | 2019-11-30 20:12 | NUR ---
MS RN OPENING NOTES PATIENT RECEIVED RESTING IN BED A/O X 2-3. STABLE ON RA WITH BREATHING EVEN AND UNLABORED, NO SOB NOTED. NO SIGNS OF ACUTE DISTRESS. NO COMPLAINTS OF PAIN OR DISCOMFORT. NO IV ACCESS. SAFETY PRECAUTIONS IN PLACE WITH BED IN LOWEST POSITION, CALL LIGHT WITHIN REACH, SIDE RAILS UP X2, BREAKS ON. WILL CONTINUE TO MONITOR.
[2019-11-30] MEDS: ATORVASTATIN 10 MG TABLET PO SCH (21:50)
[2019-11-30] MEDS: *INSULIN REGULAR(HUMULIN R)HUM 100 UNIT/ML VIAL SQ PRN (21:50)
[2019-12-01] MEDS: BLOOD SUGAR DIAGNOSTIC 1 EACH STRIP VI SCH ×2 (06:45→11:16)
--- NOTE | 2019-12-01 06:52 | NUR ---
MS RN CLOSING NOTES PATIENT CURRENTLY RESTING IN BED A/O X 2-3. STABLE ON RA WITH BREATHING EVEN AND UNLABORED, NO SOB NOTED. NO SIGNS OF ACUTE DISTRESS. NO COMPLAINTS OF PAIN OR DISCOMFORT. NO IV ACCESS. SAFETY PRECAUTIONS IN PLACE WITH BED IN LOWEST POSITION, CALL LIGHT WITHIN REACH, SIDE RAILS UP X2, BREAKS ON. ALL NEEDS WERE ATTENDED TO THROUGHOUT THE NIGHT. PATIENT WAS KEPT CLEAN AND DRY. WILL ENDORSE TO ONCOMING SHIFT ABOUT KIRILL.
[2019-12-01] MEDS: LEVOTHYROXINE SODIUM 75 MCG TABLET PO SCH (07:12)
[2019-12-01] MEDS: PANTOPRAZOLE 40 MG TABLET.DR PO SCH (07:12)
--- NOTE | 2019-12-01 07:33 | NUR ---
GPS/RN - Assessment Patient is awake, A/O x 3, denies pain, no apparent distress, denies SI/HI at this time. Patient on voluntary psych hold, calm and cooperative, no behavioral issues overnight. Fall and contact precautions maintained R/O scabies. Possible discharge today to [facility]. Will continue with current plan of care.
[2019-12-01 08:00] VITALS: BP 136/59
[2019-12-01] MEDS: AMLODIPINE BESYLATE 10 MG TABLET PO SCH (08:10)
[2019-12-01] MEDS: FUROSEMIDE 20 MG TABLET PO SCH (08:10)
[2019-12-01] MEDS: METFORMIN 500 MG TABLET PO SCH (08:10)
[2019-12-01] MEDS: POTASSIUM CITRATE 5 MEQ TABLET.SA PO SCH (08:11)
[2019-12-01] MEDS: OLANZAPINE 5 MG TABLET PO SCH ×2 (08:11→16:10)
[2019-12-01] MEDS: LOSARTAN POTASSIUM 50 MG TABLET PO SCH (08:11)
[2019-12-01] MEDS: FLUOCINONIDE 0.05% CREAM 60 GM TUBE TP SCH ×2 (08:12→16:11)
[2019-12-01] MEDS: INSULIN GLARGINE, 100 UNIT/ML CARTRIDGE SQ SCH ×2 (08:14→21:07)
[2019-12-01] MEDS: CLOTRIMAZOLE 1% 15 GM TUBE TP SCH ×2 (08:17→16:10)
[2019-12-01] MEDS: Z GUARD REMEDY 2 OZ OINT TP SCH (08:20)
[2019-12-01] MEDS ORDERED: INSULIN ASPART/LISPRO 100 UNIT/ML CARTRIDGE SQ PRN (14:30)
[2019-12-01] MEDS ORDERED: *INSULIN ASPART NOVOLOG 100 UNIT/ML CARTRIDGE SQ PRN (14:30)
[2019-12-01] MEDS ORDERED: DEXTROSE 50%-WATER 50 ML DISP.SYRIN IV PRN (14:30)
--- NOTE | 2019-12-01 15:15 | NUR ---
GROUP NOTE: SW encouraged pt to participate in group therapy on this present day discussing, "reality-testing." Pt refused to attend stating, "I don't want to leave my room I want to watch TV." SW attempted to provide intervention however, pt did not engage.
[2019-12-01 16:00] VITALS: BP 111/51
[2019-12-01] MEDS: BLOOD SUGAR DIAGNOSTIC 1 EACH STRIP IN SCH ×2 (17:06→21:05)
--- NOTE | 2019-12-01 18:26 | NUR ---
GPS/RN - End of shift summary No significant change in condition seen, calm and cooperative, denies SI/HI, no behavioral issues throughout the shift. Patient is medically cleared for discharge tomorrow per Dr. Sewell. Will continue with current plan of care.
--- NOTE | 2019-12-01 19:00 | NUR ---
GPS RN NOTE RECEIVED PT IN STABLE CONDITION A/O X2, NOTED TO BE RESTING IN BED, RESPONDS WHEN NAME IS CALLED. NO SIGNS OF SOB OR DISTRESS, NO C/O PAIN OR N/V. PT COOPERATIVE WITH PLAN OF CARE. ALL CURRENT NEEDS ATTENDED TO. BED LOW, LOCKED, UPPER RAILS UP AND CALL LIGHT WITHIN REACH. WILL CONT. TO MONITOR.
[2019-12-01 20:00] VITALS: BP 105/53
[2019-12-01] MEDS: ATORVASTATIN 10 MG TABLET PO SCH (21:06)
[2019-12-02] MEDS: BLOOD SUGAR DIAGNOSTIC 1 EACH STRIP IN SCH ×2 (06:32→12:15)
--- NOTE | 2019-12-02 06:40 | NUR ---
MS RN NOTE PT REMAINS IN STABLE CONDITION A/O X2, NOTED TO BE RESTING IN BED, RESPONDS WHEN NAME IS CALLED. NO SIGNS OF SOB OR DISTRESS, NO C/O PAIN OR N/V. PT COOPERATIVE WITH PLAN OF CARE. NO HI OR SI. ALL CURRENT NEEDS ATTENDED TO. BED LOW, LOCKED, UPPER RAILS UP, ISOLATION PRECAUTIONS IN PLACE, AND CALL LIGHT WITHIN REACH. WILL CONT. TO MONITOR AND ENDORSE TO NEXT SHIFT FOR KIRILL.
--- NOTE | 2019-12-02 07:10 | NUR ---
MS RN NOTES PATIENT IN BED ALERT ORIENTED X 2. NO ACUTE DISTRESS NOTED, BREATHING UNLABORED. NO SOB NOTED. SAFETY MEASURES IN PLACE. CALL LIGHT WITHIN REACH. WILL CONTINUE TO MONITOR ACCORDINGLY.
[2019-12-02] MEDS: PANTOPRAZOLE 40 MG TABLET.DR PO SCH (07:49)
[2019-12-02] MEDS ORDERED: LEVOTHYROXINE SODIUM 50 MCG TABLET PO SCH (07:49)
[2019-12-02 08:00] VITALS: BP 123/58
[2019-12-02] MEDS: LOSARTAN POTASSIUM 50 MG TABLET PO SCH (09:37)
[2019-12-02 09:38] VITALS: BP 125/59
[2019-12-02] MEDS: POTASSIUM CITRATE 5 MEQ TABLET.SA PO SCH (09:38)
[2019-12-02] MEDS: OLANZAPINE 5 MG TABLET PO SCH (09:38)
[2019-12-02] MEDS: METFORMIN 500 MG TABLET PO SCH (09:38)
[2019-12-02] MEDS: FUROSEMIDE 20 MG TABLET PO SCH (09:38)
[2019-12-02] MEDS: AMLODIPINE BESYLATE 10 MG TABLET PO SCH (09:38)
[2019-12-02] MEDS: FLUOCINONIDE 0.05% CREAM 60 GM TUBE TP SCH (09:38)
[2019-12-02] MEDS: INSULIN GLARGINE, 100 UNIT/ML CARTRIDGE SQ SCH (09:40)
[2019-12-02] MEDS: CLOTRIMAZOLE 1% 15 GM TUBE TP SCH (11:35)
[2019-12-02] MEDS: Z GUARD REMEDY 2 OZ OINT TP SCH (11:37)
--- NOTE | 2019-12-02 12:47 | NUR ---
DISCHARGE NOTE: Pt will be discharged at 2:30pm via [facility] to [facility] Address: [address], [place] [address] . No family to notify. Pt is euthymic with congruent affect. Pt denied visual/auditory hallucinations and denied suicidal/homicidal ideation. Pt will be under the care of Psychiatrist: Dr. Jurgen Neal Address: [address] [place] [address] [address], [place] [address] and Mink Rancher: Dr. Sewell [address] [facility] [address] [address] . The multidisciplinary exit care form was done, printed, signed, and given to the patient.
--- NOTE | 2019-12-02 12:53 | NUR ---
DR. SHAIKH GAVE AN ORDER TO D/C PT. TO [facility] AND TO FOLLOW UP WITH PSYCH AND MEDICAL DOCTORS. PER. PSYCHIATRIST TO PROVIDE MED LISTS TO [facility].
--- NOTE | 2019-12-02 13:07 | NUR ---
CALLED [facility] AND SPOKE TO LANDON AND WAS NOTIFIED THAT WE ARE DISCHARGING PT. TODAY AND SAID OK AND THEY WILL TAKE HER BACK.
--- NOTE | 2019-12-02 14:45 | NUR ---
LEAN ENGINEER NOTES PATIENT DISCHARGE TO [facility], REPORT GIVEN TO LANDON, WITH STABLE VITAL SIGNS. NO ACUTE DISTRESS NOTED. BREATHING UNLABORED. NO SOB NOTED. DENIED SUICIDAL AND HOMICIDAL IDEATION. DISCHARGE INSTRUCTIONS GIVEN TO THE TRANSPORT PERSONNEL TO BE GIVEN TO ASSISTED LIVING PERSONNEL. PATIENT REFUSED PHOTO TAKEN DESPITE OF EXPLANATION OF RISKS AND BENEFITS. ALL BELONGINGS ACCOUNTED FOR. PICKED UP VIA [facility] ON A WHEELCHAIR ACCOMPANIED BY 2 TRANSPORT PERSONNEL IN STABLE CONDITION. CLARIFIED MEDICATIONS DISCHARGE ORDERS WITH RAPHAEL MALIK, ORDER READ BACK TO MD. FOR OTHER MEDICATIONS, PER [facility] FULLER TO SEND MEDICATIONS LIST TO FACILITY AND FACILITY TO CALL [facility] , SPOKE WITH LANDON FROM FACILITY MADE AWARE, VERBALIZED UNDERSTANDING.
== END 2019-12-02 14:45 | disposition home or self-care (01) | DRG 885 ==
LOC: ER 08:26 → EDSEX 11:16 → GPS 11:16 → GPSOV2 11-23 16:34
PROVIDERS: ADMIT Psychiatry & Neurology Psychiatry; ATTEND Internal Medicine
DX: F20.0 Paranoid schizophrenia (principal); F41.9 Anxiety disorder, unspecified; E03.9 Hypothyroidism, unspecified; I10 Essential (primary) hypertension; Z79.84 Long term (current) use of oral hypoglycemic drugs; Z88.0 Allergy status to penicillin; D63.8 Anemia in other chronic diseases classified elsewhere; E11.9 Type 2 diabetes mellitus without complications; B86 Scabies; E66.9 Obesity, unspecified; Z68.31 Body mass index [BMI] 31.0-31.9, adult; Z79.4 Long term (current) use of insulin; F32.9 Major depressive disorder, single episode, unspecified
CPT/HCPCS: 36415; 80048-TC; 80053-TC; 80061-TC; 80076-TC; 80305; 81000-TC; 82728-TC; 82962-TC; 84443-TC; 85025-TC; 87081-TC; 87086-TC; A6403; G0480; J1815